=== PATIENT | male | born 1980 | race African-American/Black ===

== ENCOUNTER → 2017-04-15 | Outpatient (CLI) | payer BC ==
[2017-04-15 10:15] LABS: BASOPHILS % 0.5 % (0.0-2.0); EOSINOPHILS % 1.8 % (0.0-5.0); HEMATOCRIT. 42.4 % (42.0-52.0); HEMOGLOBIN. 13.9 g/dL (14.0-18.0); LYMPHOCYTES % 28.7 % (20.0-50.0); MEAN CORPUSCULAR HEMOGLOBIN 22.7 pg (28.0-32.0); MEAN CORPUSCULAR VOLUME 69.2 fL (80.0-94.0); MEAN PLATELET VOLUME 8.7 fl (7.4-10.4); MONOCYTES % 9.2 % (2.0-8.0); NEUTROPHILS % 59.8 % (40.0-76.0); PLATELET 240 x1000/uL (130-400); RED BLOOD CELL COUNT 6.13 mill/uL (4.7-6.1); RED CELL DISTRIBUTION WIDTH 15.1 % (11.6-14.6)
[2017-04-15 10:36] LABS: CARBON DIOXIDE 29 mEq/L (21-32); CHLORIDE 105 mEq/L (98-107); HDL CHOLESTEROL 46 mg/dL (40-59); LDL CHOLESTEROL 134 mg/dL (5-100)
[2017-04-15 10:50] LABS: CLARITY URINE CLEAR (CLEAR); COLOR URINE YELLOW (YELLOW); GLUCOSE URINE NEGATIVE (NEGATIVE); KETONES URINE NEGATIVE (NEGATIVE); LEUKOCYTE ESTERASE URINE NEGATIVE (NEGATIVE); NITRITE URINE NEGATIVE (NEGATIVE); OCCULT BLOOD URINE NEGATIVE (NEGATIVE); PH URINE 7.5 (4.5-8.0); PROTEIN URINE NEGATIVE (NEGATIVE); SPECIFIC GRAVITY URINE 1.022 (1.005-1.030)
[2017-04-15 11:11] LABS: PLATELET ESTIMATE NORMAL
== END | disposition home or self-care (01) ==
LOC: LAB 09:46
PROVIDERS: ATTEND Internal Medicine
DX: I10 Essential (primary) hypertension (principal); E66.9 Obesity, unspecified; Z79.899 Other long term (current) drug therapy
CPT/HCPCS: 36415; 80053; 80061; 81003; 83036; 84153; 85025

== ENCOUNTER 2024-04-14 02:47 | Inpatient (IN) | payer BC ==
[~2024-04-14] VITALS: Ht 172.7 cm; Wt 110.7 kg
[2024-04-14] MEDS: LORAZEPAM 2MG/ML INJ IV ONE (02:56)
[2024-04-14] MEDS: SODIUM CHLORIDE 0.9% 1,000 ML IV ONE (02:56)
[2024-04-14] MEDS: LEVETIRACETAM 1000MG PREMIX 100 ML IV ONE (02:56)
[2024-04-14 03:13] LABS: BASOPHILS % 0.4 % (0.0-2.0); DIFFERENTIAL COMMENT 0; EOSINOPHILS % 1.8 % (0.0-5.0); HEMATOCRIT. 48.6 % (42.0-52.0); HEMOGLOBIN. 14.6 g/dL (14.0-18.0); LYMPHOCYTES % 47.1 % (20.0-50.0); MEAN CORPUSCULAR HEMOGLOBIN 21.9 pg (28.0-32.0); MEAN CORPUSCULAR HGB CONC 30.1 g/dL (31.0-37.0); MEAN CORPUSCULAR VOLUME 72.7 fL (80.0-94.0); MEAN PLATELET VOLUME 10.2 fl (7.4-10.4); MONOCYTES % 8.2 % (2.0-8.0); NEUTROPHILS % 42.5 % (40.0-76.0); PLATELET 284 x1000/uL (130-400); RED BLOOD CELL COUNT 6.69 mill/uL (4.7-6.1); RED CELL DISTRIBUTION WIDTH 15.1 % (11.6-14.6); WHITE BLOOD COUNT 10.5 x1000/uL (4.5-11.0)
[2024-04-14 03:25] LABS: CHLORIDE 98 mEq/L (98-107); POTASSIUM 3.6 mEq/L (3.5-5.1); SODIUM 137 mEq/L (136-145)
[2024-04-14 03:26] LABS: CALCIUM 10.4 mg/dL (8.7-10.4); CARBON DIOXIDE 14 mEq/L (21-32)
[2024-04-14 03:31] LABS: CREATININE 1.6 mg/dL (0.6-1.3); UREA NITROGEN BLOOD 12 mg/dL (9-23)
[2024-04-14 03:32] LABS: TROPONIN I HIGH SENSITIVITY 8 ng/L (3.0-53)
[2024-04-14 03:33] LABS: CREATINE KINASE 293 IU/L (46-171)
[2024-04-14] MEDS: MIDAZOLAM HCL 2 MG/2 ML VIAL IV ONE (04:05)
[2024-04-14 04:18] LABS: ETHANOL BLOOD < 10 mg/dL (<10); GLUCOSE 542 mg/dL (70-105); LACTIC ACID 20.8 mmol/L (0.4-2.0)
[2024-04-14 05:02] LABS: BETA HYDROXYBUTYRATE 0.3 mMol/L (0.0-0.3)
[2024-04-14] MEDS: IOHEXOL-350 100 ML BOTTLE ONE (06:24)
[2024-04-14 06:27] LABS: CLARITY URINE CLEAR (CLEAR); COLOR URINE YELLOW (YELLOW); GLUCOSE URINE 3+ (NEGATIVE); KETONES URINE TRACE (NEGATIVE); LEUKOCYTE ESTERASE URINE NEGATIVE (NEGATIVE); NITRITE URINE NEGATIVE (NEGATIVE); OCCULT BLOOD URINE NEGATIVE (NEGATIVE); PH URINE 5.5 (4.5-8.0); PROTEIN URINE 1+ (NEGATIVE); SPECIFIC GRAVITY URINE 1.036 (1.005-1.030); UROBILINOGEN URINE 0.2 E.U./dL (0.2-1.0)
[2024-04-14 06:36] LABS: *AMPHETAMINES SCREEN URINE NEGATIVE (NEGATIVE); *BARBITURATES SCREEN URINE NEGATIVE (NEGATIVE); *BENZODIAZEPINES SCREEN URINE PRESUMPTIVE POSITIVE (NEGATIVE); *COCAINE SCREEN URINE NEGATIVE (NEGATIVE)
[2024-04-14 06:37] LABS: CANNABINOID URINE SCREEN NEGATIVE (NEGATIVE); ECSTASY MDMA SCREEN URINE NEGATIVE (NEGATIVE); METHADONE URINE SCREEN NEGATIVE (NEGATIVE); OPIATES URINE SCREEN PRESUMPTIVE POSITIVE (NEGATIVE); PHENCYCLIDINE URINE SCREEN NEGATIVE (NEGATIVE)
[2024-04-14] MEDS ORDERED: ONDANSETRON HCL 4MG/2ML INJ IV PRN (07:30)
[2024-04-14] MEDS ORDERED: LORAZEPAM 2MG/ML INJ IV PRN (07:30)
[2024-04-14] MEDS ORDERED: DEXTROSE 50% WATER 50ML SYRINGE IV PRN (07:30)
[2024-04-14] MEDS ORDERED: DOCUSATE SODIUM 100MG CAPSULE PO PRN (07:30)
[2024-04-14] MEDS ORDERED: ACETAMINOPHEN 325MG TABLET PO PRN (07:30)
[2024-04-14] MEDS ORDERED: IPRATROPIUM/ALBUTEROL 0.5-3(2.5)MG/3ML NEB HHN PRN (07:30)
[2024-04-14 08:06] LABS: BACTERIA URINE NONE SEEN; RBC URINE 0-2 /hpf (0-2); SQUAMOUS EPITHELIAL CELL URINE NONE SEEN /lpf (RARE/1+); WBC URINE 0-2 /hpf (0-2)
[2024-04-14] MEDS: INSULIN LISPRO 100 UNITS/ML SUBCUT SCH (08:20)
[2024-04-14 08:21] LABS: THYROID STIMULATING HORMONE 1.41 uIU/mL (0.55-4.78)
[2024-04-14] MEDS ORDERED: LEVETIRACETAM 500MG in NACL 100ML PREMIX IV SCH (09:00)
[2024-04-14] MEDS: LEVETIRACETAM 500MG PREMIX 100ML IV SCH (09:04)
[2024-04-14] MEDS: BLOOD SUGAR DIAGNOSTIC STRIP TEST SCH (09:12)
[2024-04-14 09:17] LABS: BG BASE EXCESS -3.6 mmol/L (-2.0-3.0); BG CARBOXYHEMOGLOBIN 1.3 % (0.5-1.5); BG DEOXYHEMOGLOBIN 2.9 % (0.0-5.0); BG FRACTION INSPIRED OXYGEN 28; BG HCO3 ACT 21.1 mmol/L (21.0-28.0); BG METHEMOGLOBIN 0.3 % (0.5-1.5); BG OXYGEN SATURATION 97.1 % (94.0-98.0); BG OXYHEMOGLOBIN 95.5 % (94.0-98.0); BG PCO2 37.1 mmHg (35.0-48.0); BG PH 7.372 (7.350-7.450); BG PO2 85.6 mmHg (83.0-108.0); BG SAMPLE SITE LEFT BRACHIAL; BG TOTAL HEMOGLOBIN 13.8 g/dL (13.5-17.5); BG VENT MODE NASAL CANNULA
[2024-04-14 09:34] LABS: BASOPHILS % 0.3 % (0.0-2.0); EOSINOPHILS % 0.1 % (0.0-5.0); HEMATOCRIT. 42.1 % (42.0-52.0); HEMOGLOBIN. 13.1 g/dL (14.0-18.0); LYMPHOCYTES % 11.7 % (20.0-50.0); MEAN CORPUSCULAR HEMOGLOBIN 21.3 pg (28.0-32.0); MEAN CORPUSCULAR VOLUME 68.8 fL (80.0-94.0); MEAN PLATELET VOLUME 9.5 fl (7.4-10.4); MONOCYTES % 6.7 % (2.0-8.0); NEUTROPHILS % 81.2 % (40.0-76.0); PLATELET 212 x1000/uL (130-400); RED BLOOD CELL COUNT 6.12 mill/uL (4.7-6.1); RED CELL DISTRIBUTION WIDTH 14.6 % (11.6-14.6); WHITE BLOOD COUNT 8.4 x1000/uL (4.5-11.0)
[2024-04-14 09:44] LABS: DIFFERENTIAL COMMENT 1
[2024-04-14 09:45] LABS: CHLORIDE 102 mEq/L (98-107); SODIUM 134 mEq/L (136-145)
[2024-04-14 09:46] LABS: CALCIUM 8.9 mg/dL (8.7-10.4); CARBON DIOXIDE 23 mEq/L (21-32)
[2024-04-14 09:48] LABS: ADD RBC MORPHOLOGY YES
[2024-04-14 09:51] LABS: CREATININE 1.1 mg/dL (0.6-1.3); GLUCOSE 396 mg/dL (70-105); UREA NITROGEN BLOOD 10 mg/dL (9-23)
[2024-04-14 09:53] LABS: ALANINE AMINOTRANSFERASE 31 IU/L (10-49); ALBUMIN 4.3 g/dL (3.2-4.8); ASPARTATE AMINOTRANSFERASE 20 IU/L (<34); BILIRUBIN TOTAL 0.3 mg/dL (0.1-1.0); PHOSPHORUS 2.9 mg/dL (2.5-4.9)
[2024-04-14] MEDS ORDERED: GADOTERATE MEGLUMINE 5 MMOL/10 ML VIAL IV ONE (11:39)
[2024-04-14 13:52] LABS: MICROCYTOSIS 2+; PLATELET ESTIMATE NORMAL
[2024-04-14 13:58] VITALS: BP 156/104; PULSE 99; RESP 18; TEMP 36.9184
[2024-04-14] MEDS: CLONIDINE 0.1MG TABLET PO PRN (14:55)
[2024-04-14 16:00] VITALS: BP 140/96; PULSE 106; RESP 19; TEMP 37.05852; O2SAT 100
[2024-04-14 19:26] LABS: HEPATITIS B SURFACE ANTIGEN NEGATIVE (Negative)
[2024-04-14 19:47] LABS: HEPATITIS C AB NON REACTIVE (Neg) (Negative)
[2024-04-14 20:00] VITALS: BP 143/92; PULSE 101; RESP 19; TEMP 37.00296; O2SAT 100
[2024-04-14] MEDS: ACETAMINOPHEN 325MG TABLET PO PRN (21:20)
[2024-04-14] MEDS: ATORVASTATIN CALCIUM 40MG TABLET PO SCH (21:21)
[2024-04-14] MEDS: INSULIN GLARGINE 100 UNITS/ML SUBCUT SCH (21:22)
[2024-04-15 04:00] VITALS: BP 153/100; PULSE 91; RESP 19; TEMP 36.50292
[2024-04-15 07:18] LABS: CALCIUM 9.1 mg/dL (8.7-10.4); CARBON DIOXIDE 25 mEq/L (21-32); CHLORIDE 103 mEq/L (98-107); POTASSIUM 3.7 mEq/L (3.5-5.1); SODIUM 137 mEq/L (136-145)
[2024-04-15 07:23] LABS: CREATININE 0.9 mg/dL (0.6-1.3); GLUCOSE 254 mg/dL (70-105)
[2024-04-15 07:24] LABS: TRIGLYCERIDE 170 mg/dL (0-150); UREA NITROGEN BLOOD 10 mg/dL (9-23)
[2024-04-15 07:25] LABS: LDL CHOLESTEROL 205 mg/dL (5-100)
[2024-04-15 07:26] LABS: CHOLESTEROL 277 mg/dL (<200); HDL CHOLESTEROL 40 mg/dL (>55)
[2024-04-15 08:00] VITALS: BP 146/97; PULSE 84; RESP 17; TEMP 36.50292
[2024-04-15] MEDS ORDERED: HYDRALAZINE HCL 25MG TABLET PO PRN (08:15)
[2024-04-15 08:22] LABS: BASOPHILS % 0.3 % (0.0-2.0); EOSINOPHILS % 1.3 % (0.0-5.0); HEMATOCRIT. 40.9 % (42.0-52.0); HEMOGLOBIN. 12.7 g/dL (14.0-18.0); LYMPHOCYTES % 18.4 % (20.0-50.0); MEAN CORPUSCULAR HEMOGLOBIN 21.4 pg (28.0-32.0); MEAN CORPUSCULAR HGB CONC 31.1 g/dL (31.0-37.0); MEAN CORPUSCULAR VOLUME 68.8 fL (80.0-94.0); MEAN PLATELET VOLUME 9.9 fl (7.4-10.4); MONOCYTES % 7.2 % (2.0-8.0); NEUTROPHILS % 72.8 % (40.0-76.0); PLATELET 207 x1000/uL (130-400); RED BLOOD CELL COUNT 5.94 mill/uL (4.7-6.1); RED CELL DISTRIBUTION WIDTH 14.3 % (11.6-14.6)
[2024-04-15 08:28] LABS: DIFFERENTIAL COMMENT 1
[2024-04-15] MEDS: ASPIRIN 81MG EC TABLET PO SCH (08:53)
[2024-04-15] MEDS: CLOPIDOGREL 75MG TABLET PO SCH (08:54)
[2024-04-15] MEDS: LEVETIRACETAM 500MG TABLET PO SCH (08:54)
[2024-04-15 12:00] VITALS: BP 143/81; PULSE 81; RESP 18; TEMP 36.44736
[2024-04-15 16:00] VITALS: BP 134/90; PULSE 78; RESP 20; TEMP 36.33624; O2SAT 98
[2024-04-15 20:00] VITALS: BP 152/104; PULSE 94; RESP 20; TEMP 36.44736; O2SAT 98
[2024-04-15] MEDS: ATORVASTATIN CALCIUM 40MG TABLET PO SCH (21:00)
[2024-04-15] MEDS: INSULIN GLARGINE 100 UNITS/ML SUBCUT SCH (22:00)
[2024-04-16] VITALS: BP_SYST 154; BP_SYST 159; BP_DIAS 108; BP_DIAS 94; PULSE 92; RESP 20; TEMP 36.16956; O2SAT 90
[2024-04-16 04:00] VITALS: BP 142/94; PULSE 90; RESP 20; TEMP 36.33624; O2SAT 99
[2024-04-16 08:00] VITALS: BP 141/105; PULSE 89; RESP 20; TEMP 36.22512; O2SAT 97
[2024-04-16 12:00] VITALS: BP 157/109; PULSE 87; RESP 20; TEMP 36.28068; O2SAT 96
[2024-04-16 16:00] VITALS: BP 164/113; PULSE 87; RESP 20; TEMP 36.16956; O2SAT 97
[2024-04-16 20:00] VITALS: BP 169/106; PULSE 93; RESP 20; TEMP 36.22512; O2SAT 99
[2024-04-17] VITALS: BP 149/113; PULSE 90; RESP 20; TEMP 36.33624; O2SAT 98
[2024-04-17 04:00] VITALS: BP 157/110; PULSE 79; RESP 20; TEMP 36.05844; O2SAT 98
[2024-04-17 08:00] VITALS: BP 160/98; PULSE 77; RESP 20; TEMP 36.50292; O2SAT 99
[2024-04-17] MEDS: HYDRALAZINE HCL 50MG TABLET PO SCH (11:00)
[2024-04-17] MEDS ORDERED: HYDR50TA40 MT (11:07)
[2024-04-17] MEDS ORDERED: ATOR-388 MT (11:07)
[2024-04-17] MEDS ORDERED: METF-414 MT (11:07)
[2024-04-17] MEDS ORDERED: CLOP-31 MT (11:07)
[2024-04-17] MEDS ORDERED: KEPP500 MT (11:07)
[2024-04-17] MEDS ORDERED: ASPI-1497 MT (11:07)
[2024-04-17] MEDS ORDERED: INSU100I28 SQ (11:07)
[2024-04-17 12:00] VITALS: BP 168/90; PULSE 80; RESP 18; TEMP 36.50292; O2SAT 99
== END 2024-04-17 16:00 | disposition home or self-care (01) | DRG 65 ==
LOC: ER 02:47 → EDBEDREQTM 04:55 → EDBEDREQ 04:55 → MICUSO 05:01 → EDBEDREQTM 05:34 → EDBEDREQSVC 05:34 → 7EST 14:12
PROVIDERS: ADMIT Family Medicine Adult Medicine; ATTEND Family Medicine Adult Medicine
PROC: 4A00X4Z Measurement of Central Nervous Electrical Activity, External Approach (ICD-10-PCS; principal; 2024-04-14)
DX: I63.9 Cerebral infarction, unspecified (principal); E87.20 Acidosis, unspecified; E11.65 Type 2 diabetes mellitus with hyperglycemia; G40.409 Other generalized epilepsy and epileptic syndromes, not intractable, without status epilepticus; I10 Essential (primary) hypertension; E78.5 Hyperlipidemia, unspecified; F17.210 Nicotine dependence, cigarettes, uncomplicated; E66.9 Obesity, unspecified; Z68.37 Body mass index [BMI] 37.0-37.9, adult; Z79.82 Long term (current) use of aspirin; Z79.899 Other long term (current) drug therapy
CPT/HCPCS: 36415; 36600; 70496; 70498; 70553; 71045; 80048; 80053; 80061; 80305; 80320; 81003; 82010; 82375; 82550; 82805; 82962; 83036; 83605; 83735; 84100; 84443; 84484; 85025; 86705; 87340; 92523; 92610; 93005; 93306; 95816; 97110; 97162; 97166; 97535; 99285; A9577; J1815; J1953; J2060; J2250; Q9967; G0480

== ENCOUNTER → 2024-07-21 | Outpatient (CLI) | payer BC ==
[~2024-07-21] MED LIST: ASPI-1497 MT; ATOR-388 MT; CLOP-31 MT; HYDR50TA40 MT; INSU100I28 SQ; KEPP500 MT; METF-414 MT
[2024-07-21 09:04] LABS: CHLORIDE 104 mEq/L (98-107); POTASSIUM 4.5 mEq/L (3.5-5.1); SODIUM 139 mEq/L (136-145)
[2024-07-21 09:05] LABS: CALCIUM 9.6 mg/dL (8.7-10.4); CARBON DIOXIDE 29 mEq/L (21-32)
[2024-07-21 09:10] LABS: CREATININE 1.1 mg/dL (0.6-1.3); GLUCOSE 142 mg/dL (70-105); TRIGLYCERIDE 72 mg/dL (0-150); UREA NITROGEN BLOOD 18 mg/dL (9-23)
[2024-07-21 09:11] LABS: LDL CHOLESTEROL 72 mg/dL (5-100)
[2024-07-21 09:12] LABS: ALANINE AMINOTRANSFERASE 23 IU/L (10-49); ALBUMIN 4.4 g/dL (3.2-4.8); ASPARTATE AMINOTRANSFERASE 17 IU/L (<34); BILIRUBIN TOTAL 0.4 mg/dL (0.1-1.0); CHOLESTEROL 127 mg/dL (<200); HDL CHOLESTEROL 38 mg/dL (>55); PROTEIN TOTAL 7.3 g/dL (6.0-8.3)
[2024-07-21 09:14] LABS: BASOPHILS % 0.4 % (0.0-2.0); EOSINOPHILS % 1.4 % (0.0-5.0); HEMATOCRIT. 38.7 % (42.0-52.0); HEMOGLOBIN. 12.4 g/dL (14.0-18.0); LYMPHOCYTES % 28.4 % (20.0-50.0); MEAN CORPUSCULAR HEMOGLOBIN 22.1 pg (28.0-32.0); MEAN PLATELET VOLUME 9.1 fl (7.4-10.4); MONOCYTES % 7.9 % (2.0-8.0); NEUTROPHILS % 61.9 % (40.0-76.0); PLATELET 240 x1000/uL (130-400); RED BLOOD CELL COUNT 5.61 mill/uL (4.7-6.1); RED CELL DISTRIBUTION WIDTH 16.1 % (11.6-14.6); WHITE BLOOD COUNT 5.6 x1000/uL (4.5-11.0)
[2024-07-21 10:20] LABS: DIFFERENTIAL COMMENT 1
[2024-07-21 10:21] LABS: ADD RBC MORPHOLOGY YES
[2024-07-21 15:56] LABS: ANISOCYTOSIS 1+; HYPOCHROMASIA 1+; MICROCYTOSIS 3+; PLATELET ESTIMATE NORMAL
== END | disposition home or self-care (01) ==
LOC: LAB 08:16
PROVIDERS: ATTEND Internal Medicine
DX: I10 Essential (primary) hypertension (principal); E11.9 Type 2 diabetes mellitus without complications; E78.5 Hyperlipidemia, unspecified
CPT/HCPCS: 36415; 80053; 80061; 83036; 85025